=== PATIENT | female | born 1990 | race Caucasian/White ===

== ENCOUNTER 2017-02-13 15:39 | Emergency (ER) | payer MEDICAID ==
[2017-02-13 17:42] LABS: BASOPHIL % 0.5 % (0-2); PLATELET COUNT 282 x10^3mcL (130-400); RED CELL DISTRIBUTION WIDTH 13.1 % (11.5-14.5)
[2017-02-13 17:43] LABS: CHLORIDE SERUM 107 mmol/L (98-107); CREATININE SERUM 0.6 mg/dL (0.6-1.0); GFR1 > 60 mL/min; GLUCOSE SERUM 86 mg/dL (74-106); POTASSIUM SERUM 3.8 mmol/L (3.5-5.1); SODIUM SERUM 142 mmol/L (136-145)
[2017-02-13 19:20] VITALS: BP 99/66
== END 2017-02-13 19:20 | disposition home or self-care (01) ==
LOC: ED 15:39
PROVIDERS: Emergency Medicine Emergency Medical Services
DX: G93.0 Cerebral cysts (principal); R51 Headache
CPT/HCPCS: 36415

== ENCOUNTER 2017-08-17 19:32 | Emergency (ER) | payer MEDICAID ==
[~2017-08-17] VITALS: Ht 165.1 cm; Wt 67.1 kg
[2017-08-17 19:47] VITALS: Ht 165.1 cm; Wt 67.1 kg
[2017-08-17 20:43] LABS: BASOPHIL % 0.6 % (0-2); PLATELET COUNT 229 x10^3mcL (130-400); RED CELL DISTRIBUTION WIDTH 13.2 % (11.5-14.5)
[2017-08-17 20:54] LABS: CALCIUM 8.3 mg/dL (8.5-10.1); CARBON DIOXIDE 28.9 mmol/L (21-32); CHLORIDE SERUM 110 mmol/L (98-107); CREATININE SERUM 0.5 mg/dL (0.6-1.0); GFR1 > 60 mL/min; GLUCOSE SERUM 90 mg/dL (74-106); POTASSIUM SERUM 4.1 mmol/L (3.5-5.1); SODIUM SERUM 145 mmol/L (136-145)
[2017-08-17 21:08] LABS: ALBUMIN 3.5 g/dL (3.4-5.0); ALKALINE PHOSPHATASE 71 U/L (46-116); ALT/SGPT 15 U/L (14-59); AST/SGOT 16 U/L (15-37); BILIRUBIN TOTAL 0.42 mg/dL (0.20-1.00); FREE T4 1.14 ng/dL (0.76-1.46); LIPASE 95 IU/L (73-393); TOTAL PROTEIN, SERUM 6.7 g/dL (6.4-8.2)
[2017-08-17 22:44] VITALS: BP 109/66
== END 2017-08-17 22:44 | disposition home or self-care (01) ==
LOC: ED 19:32
PROVIDERS: Emergency Medicine
DX: N83.202 Unspecified ovarian cyst, left side (principal)
CPT/HCPCS: 36415; 84439

== ENCOUNTER 2018-12-11 10:54 | Emergency (ER) | payer MEDICAID ==
[~2018-12-11] VITALS: Ht 165.1 cm; Wt 68.5 kg
[2018-12-11 10:59] VITALS: BP 110/70; Ht 165.1 cm; Wt 68.5 kg
[2018-12-11 11:29] LABS: BASOPHIL % 0.3 % (0-2); PLATELET COUNT 285 x10^3mcL (130-400); RED CELL DISTRIBUTION WIDTH 13.5 % (11.5-14.5)
== END 2018-12-11 11:55 | disposition home or self-care (01) ==
LOC: ED 10:54
PROVIDERS: Emergency Medicine
DX: N92.0 Excessive and frequent menstruation with regular cycle (principal); Z87.19 Personal history of other diseases of the digestive system
CPT/HCPCS: 36415

== ENCOUNTER 2019-03-02 09:42 | Emergency (ER) | payer BC ==
[~2019-03-02] VITALS: Ht 165.1 cm; Wt 65.3 kg
[2019-03-02 09:59] VITALS: Ht 165.1 cm; Wt 65.3 kg
[2019-03-02 13:26] VITALS: BP 102/61
== END 2019-03-02 13:26 | disposition home or self-care (01) ==
LOC: ED 09:42
DX: O99.511 Diseases of the respiratory system complicating pregnancy, first trimester (principal); H66.92 Otitis media, unspecified, left ear; J10.1 Influenza due to other identified influenza virus with other respiratory manifestations; Z3A.13 13 weeks gestation of pregnancy; Z90.49 Acquired absence of other specified parts of digestive tract
CPT/HCPCS: 87804